=== PATIENT | male | born 1950 | race Caucasian/White ===

== ENCOUNTER 2017-02-15 16:20 | Inpatient (IN) | payer MEDICARE, BC ==
[~2017-02-15] VITALS: Ht 175.3 cm; Wt 71.9 kg
[2017-02-15] MEDS ORDERED: SODIUM CHLORIDE FLUSH 10ML SYR IVF ONE (16:30)
[2017-02-15] MEDS ORDERED: ALBUTEROL/IPRATROPIUM 2.5MG/0.5MG, 3 ML ONE ×2 (16:43→16:56)
[2017-02-15] MEDS: ALBUTEROL/IPRATROPIUM 2.5MG/0.5MG, 3 ML NPPB SCH ×2 (16:48→17:06)
[2017-02-15 17:09] LABS: HEMOGLOBIN 15.2 g/dL (13.7-18.0)
[2017-02-15 17:23] LABS: BLOOD UREA NITROGEN 11 mg/dL (7-18)
[2017-02-15 17:27] LABS: IS PT STATUS REG ER OR PRE ER? YES
[2017-02-15] MEDS ORDERED: ALBU8.5H3 INH (20:08)
[2017-02-15 20:26] VITALS: BP 112/72
[2017-02-15] MEDS ORDERED: DOCUSATE 100 MG CAPSULE PO PRN (20:30)
[2017-02-15] MEDS ORDERED: POLYETHYLENE GLYCOL 17 GM PACKET PO PRN (20:30)
[2017-02-15] MEDS ORDERED: NICOTINE 14MG/24 HR PATCH.TD24 TD SCH (20:30)
[2017-02-15] MEDS ORDERED: SODIUM CHLORIDE 0.9% 1,000ML IVBOLUS ONE (20:30)
[2017-02-15] MEDS ORDERED: BISACODYL 10 MG SUPP PR PRN (20:30)
[2017-02-15] MEDS ORDERED: ACETAMINOPHEN 325 MG TABLET PO PRN (20:30)
[2017-02-15] MEDS ORDERED: TRAZODONE 50MG TABLET PO PRN (20:30)
[2017-02-15] MEDS ORDERED: ONDANSETRON ODT 4 MG PO PRN (20:30)
[2017-02-15] MEDS ORDERED: ENOXAPARIN 40 MG/0.4 ML SQ SCH (20:30)
[2017-02-15] MEDS ORDERED: LABETALOL 5MG/ML, 20ML IV PRN (20:30)
[2017-02-15] MEDS ORDERED: AZITHROMYCIN 500 MG TABLET PO SCH (21:00)
[2017-02-15] MEDS: methylPREDNISolone SOD SUCC 125 MG/2 ML IVPush SCH (21:58)
[2017-02-15] MEDS ORDERED: ALBUTEROL/IPRATROPIUM 2.5MG/0.5MG, 3 ML NPPB PRN (23:00)
[2017-02-15] MEDS ORDERED: PNEUMOCOCCAL 23 VACCINE IM-VACC ONE (23:00)
[2017-02-16 01:22] VITALS: BP 110/61
[2017-02-16] MEDS: methylPREDNISolone SOD SUCC 125 MG/2 ML IVPush SCH ×3 (02:50→15:43)
[2017-02-16 06:15] LABS: ASPARTATE AMINO TRANSFERASE 35 U/L (15-37); BLOOD UREA NITROGEN 16 mg/dL (7-18)
[2017-02-16 07:27] VITALS: BP 117/70
[2017-02-16] MEDS: ALBUTEROL/IPRATROPIUM 2.5MG/0.5MG, 3 ML NPPB SCH ×3 (08:00→15:44)
[2017-02-16 12:56] VITALS: BP 117/72
[2017-02-16] MEDS ORDERED: ALBU8.5H3 INH (15:16)
[2017-02-16] MEDS ORDERED: PRED20TA PO (15:16)
[2017-02-16] MEDS ORDERED: AZIT250T PO (15:16)
== END 2017-02-16 18:00 | disposition home or self-care (01) | DRG 189 ==
LOC: ED 18:39 → EDIP 19:23 → 3NE 20:24
PROVIDERS: ADMIT Internal Medicine; ATTEND Internal Medicine
DX: J96.01 Acute respiratory failure with hypoxia (principal); R65.11 Systemic inflammatory response syndrome (SIRS) of non-infectious origin with acute organ dysfunction; J44.1 Chronic obstructive pulmonary disease with (acute) exacerbation; Z23 Encounter for immunization; Z72.89 Other problems related to lifestyle
CPT/HCPCS: 36415; 71010; 80048; 80053; 82040; 83605; 84439; 84443; 84484; 85025; 85379; 85610; 85730; 90732; 93005; 94640; 96360; 96361; J1650; J7620; J2930; J7030; J7512

== ENCOUNTER 2017-07-13 23:33 | Inpatient (IN) | payer MEDICARE, BC ==
[~2017-07-13] VITALS: Ht 188 cm; Wt 79.4 kg
[~2017-07-13 23:33] MED LIST: ALBU8.5H8 INH; AZIT250T PO; PRED20TA PO
[2017-07-13] MEDS ORDERED: ALBUTEROL SULFATE 2.5MG/0.5ML ONE (23:36)
[2017-07-14] MEDS ORDERED: SODIUM CHLORIDE FLUSH 10ML SYR IVF ONE
[2017-07-14] MEDS ORDERED: MAGNESIUM SULFATE PMX 2GM/50ML 50 ML IVPB ONE
[2017-07-14] MEDS ORDERED: PROPOFOL 100 ML IV PRN
[2017-07-14] MEDS ORDERED: SODIUM CHLORIDE 0.9% 1,000ML IVBOLUS ONE
[2017-07-14] MEDS ORDERED: methylPREDNISolone SOD SUCC 125 MG/2 ML IVP ONE
[2017-07-14] MEDS ORDERED: IPRATROPIUM 0.5 MG/2.5 ML INHA NPPB SCH
[2017-07-14] MEDS ORDERED: ETOMIDATE 20 MG/10 ML IVPush ONE
[2017-07-14] MEDS ORDERED: ONDANSETRON 2MG/ML, 2ML IVP ONE
[2017-07-14] MEDS ORDERED: ALBUTEROL 0.5%, 20ML NPPB SCH
[2017-07-14] MEDS ORDERED: SUCCINYLCHOLINE 20 MG/ML, 10ML IVPush ONE
[2017-07-14 00:02] LABS: HEMATOCRIT 42.7 % (39.2-51.8); HEMOGLOBIN 13.9 g/dL (13.7-18.0); WHITE BLOOD COUNT 15.9 x10^3/uL (3.4-10)
[2017-07-14 00:13] LABS: ABG COLLECTION SITE LEFT RADIAL; COLLATERAL CIRCULATION TESTING NORMAL
[2017-07-14 00:15] LABS: ASPARTATE AMINO TRANSFERASE 19 U/L (15-37); BLOOD UREA NITROGEN 10 mg/dL (7-18)
[2017-07-14 00:19] LABS: IS PT STATUS REG ER OR PRE ER? YES
[2017-07-14] MEDS ORDERED: AZITHROMYCIN 500 MG in SODIUM CHLORIDE 0.9% 250 ML IV ONE (00:30)
[2017-07-14] MEDS ORDERED: methylPREDNISolone SOD SUCC 125 MG/2 ML ONE (00:32)
[2017-07-14] MEDS ORDERED: VECURONIUM 10 MG ONE (01:00)
[2017-07-14] MEDS ORDERED: SUCCINYLCHOLINE 20 MG/ML, 10ML ONE (01:00)
[2017-07-14] MEDS ORDERED: PROPOFOL 10 MG/ML, 100ML IV ONE (01:00)
[2017-07-14] MEDS ORDERED: MIDAZOLAM 1 MG/ML, 5ML ONE (01:00)
[2017-07-14] MEDS ORDERED: VECURONIUM 10 MG IVPush ONE (01:00)
[2017-07-14] MEDS ORDERED: ETOMIDATE 20 MG/10 ML ONE (01:00)
[2017-07-14] MEDS ORDERED: MIDAZOLAM 1 MG/ML, 5ML IVPush ONE (01:00)
[2017-07-14] MEDS: SODIUM CHLORIDE 0.9% 1,000 ML IV SCH ×3 (01:17→20:21)
[2017-07-14] MEDS: methylPREDNISolone SOD SUCC 125 MG/2 ML IVPush SCH ×4 (01:26→19:02)
[2017-07-14] MEDS ORDERED: ACETAMINOPHEN 650 MG/20.3 ML UDC NG PRN (01:30)
[2017-07-14] MEDS ORDERED: ONDANSETRON 2MG/ML, 2ML IVPush PRN (01:30)
[2017-07-14] MEDS ORDERED: LIDOCAINE-MPF 1%, 2ML ENDO PRN (01:30)
[2017-07-14] MEDS ORDERED: BISACODYL 10 MG SUPP PR PRN (01:30)
[2017-07-14] MEDS ORDERED: ONDANSETRON 2MG/ML, 2ML ONE (01:43)
[2017-07-14] MEDS ORDERED: ENOXAPARIN 40 MG/0.4 ML ONE (01:43)
[2017-07-14] MEDS: ENOXAPARIN 40 MG/0.4 ML SQ SCH (01:50)
[2017-07-14] MEDS ORDERED: FENTANYL PF 100 MCG/2ML ONE ×2 (01:53→02:29)
[2017-07-14 02:00] LABS: IS PT STATUS REG ER OR PRE ER? YES
[2017-07-14] MEDS ORDERED: FENTANYL PF 100 MCG/2ML IVPush ONE (02:00)
[2017-07-14] MEDS ORDERED: MIDAZOLAM HCL 25 MG in SODIUM CHLORIDE 0.9% 245 ML IV PRN (02:00)
[2017-07-14] MEDS: ALBUTEROL/IPRATROPIUM 2.5MG/0.5MG, 3 ML INLINE SCH ×6 (02:05→21:55)
[2017-07-14 02:58] VITALS: BP 82/48
[2017-07-14] MEDS: CEFTRIAXONE PMX 1GM/50ML 50 ML IV SCH (03:54)
[2017-07-14 05:38] LABS: ABG COLLECTION SITE RIGHT RADIAL; COLLATERAL CIRCULATION TESTING NORMAL
[2017-07-14] MEDS: FAMOTIDINE 20 MG/2 ML IVPush SCH ×2 (07:24→20:22)
[2017-07-14] MEDS: MORPHINE SULFATE 4 MG/ML, 1ML IVPush PRN ×6 (07:24→23:25)
[2017-07-14 07:50] LABS: IS PT STATUS REG ER OR PRE ER? NO
[2017-07-14] MEDS: PROPOFOL 100 ML IV PRN (08:25)
[2017-07-14] MEDS: ASPIRIN 81 MG TABLET CHEW PO SCH (17:10)
[2017-07-14 17:23] LABS: IS PT STATUS REG ER OR PRE ER? NO
[2017-07-14] MEDS ORDERED: SODIUM CHLORIDE 0.9% 500 ML IV SCH (18:00)
[2017-07-14] MEDS ORDERED: SODIUM CHLORIDE 0.9% 500 ML IV PRN (18:00)
[2017-07-15] MEDS: ALBUTEROL/IPRATROPIUM 2.5MG/0.5MG, 3 ML INLINE SCH ×2 (01:30→06:40)
[2017-07-15] MEDS: ENOXAPARIN 40 MG/0.4 ML SQ SCH (01:36)
[2017-07-15] MEDS: methylPREDNISolone SOD SUCC 125 MG/2 ML IVPush SCH ×4 (01:36→20:14)
[2017-07-15] MEDS: CEFTRIAXONE PMX 1GM/50ML 50 ML IV SCH (01:37)
[2017-07-15] MEDS: PROPOFOL 100 ML IV PRN (02:49)
[2017-07-15] MEDS: MORPHINE SULFATE 4 MG/ML, 1ML IVPush PRN (04:18)
[2017-07-15 04:19] VITALS: BP 111/56
[2017-07-15 04:40] LABS: ABG COLLECTION SITE RIGHT RADIAL; COLLATERAL CIRCULATION TESTING NORMAL
[2017-07-15 05:04] LABS: HEMATOCRIT 37.4 % (39.2-51.8); WHITE BLOOD COUNT 11.6 x10^3/uL (3.4-10)
[2017-07-15 05:24] LABS: BLOOD UREA NITROGEN 15 mg/dL (7-18)
[2017-07-15] MEDS: SODIUM CHLORIDE 0.9% 1,000 ML IV SCH ×2 (08:25→20:14)
[2017-07-15] MEDS: FAMOTIDINE 20 MG/2 ML IVPush SCH ×2 (09:54→20:14)
[2017-07-15] MEDS: ASPIRIN 81 MG TABLET CHEW PO SCH (09:54)
[2017-07-15] MEDS: ALBUTEROL/IPRATROPIUM 2.5MG/0.5MG, 3 ML NPPB SCH ×4 (10:16→22:20)
[2017-07-15] MEDS ORDERED: ALBUTEROL/IPRATROPIUM 2.5MG/0.5MG, 3 ML NPPB PRN (10:30)
[2017-07-16] MEDS: CEFTRIAXONE PMX 1GM/50ML 50 ML IV SCH (01:22)
[2017-07-16] MEDS: methylPREDNISolone SOD SUCC 125 MG/2 ML IVPush SCH ×4 (01:22→20:17)
[2017-07-16] MEDS: ENOXAPARIN 40 MG/0.4 ML SQ SCH (01:22)
[2017-07-16] MEDS: ALBUTEROL/IPRATROPIUM 2.5MG/0.5MG, 3 ML NPPB SCH ×5 (02:59→21:40)
[2017-07-16 04:00] VITALS: BP 117/56
[2017-07-16 04:12] LABS: ABG COLLECTION SITE LEFT BRACHIAL
[2017-07-16 04:13] LABS: HEMATOCRIT 35.6 % (39.2-51.8); HEMOGLOBIN 11.8 g/dL (13.7-18.0); WHITE BLOOD COUNT 9.7 x10^3/uL (3.4-10)
[2017-07-16 04:26] LABS: BLOOD UREA NITROGEN 16 mg/dL (7-18)
[2017-07-16] MEDS: ASPIRIN 81 MG TABLET CHEW PO SCH (09:29)
[2017-07-16 14:34] VITALS: BP 116/57
[2017-07-16 18:30] VITALS: BP 131/55
[2017-07-17] MEDS: CEFTRIAXONE PMX 1GM/50ML 50 ML IV SCH (01:12)
[2017-07-17] MEDS: methylPREDNISolone SOD SUCC 125 MG/2 ML IVPush SCH ×3 (01:15→14:22)
[2017-07-17] MEDS: ENOXAPARIN 40 MG/0.4 ML SQ SCH (01:15)
[2017-07-17 01:20] VITALS: BP 118/66
[2017-07-17 04:57] LABS: BLOOD UREA NITROGEN 20 mg/dL (7-18)
[2017-07-17 05:06] LABS: HEMATOCRIT 35.5 % (39.2-51.8); HEMOGLOBIN 11.8 g/dL (13.7-18.0); WHITE BLOOD COUNT 7.4 x10^3/uL (3.4-10)
[2017-07-17] MEDS: ALBUTEROL/IPRATROPIUM 2.5MG/0.5MG, 3 ML NPPB SCH ×5 (07:42→23:05)
[2017-07-17 08:10] VITALS: BP 133/68
[2017-07-17] MEDS: ASPIRIN 81 MG TABLET CHEW PO SCH (08:11)
[2017-07-17 12:02] VITALS: BP 113/53
[2017-07-17] MEDS ORDERED: ACETAMINOPHEN 650 MG/20.3 ML UDC NG PRN (19:30)
[2017-07-17] MEDS ORDERED: ONDANSETRON 2MG/ML, 2ML IVPush PRN (19:30)
[2017-07-17] MEDS ORDERED: BISACODYL 10 MG SUPP PR PRN (19:30)
[2017-07-17 20:00] VITALS: BP 137/70
[2017-07-18] MEDS: CEFTRIAXONE PMX 1GM/50ML 50 ML IV SCH (01:28)
[2017-07-18] MEDS: ENOXAPARIN 40 MG/0.4 ML SQ SCH (01:29)
[2017-07-18 02:00] VITALS: BP 127/70
[2017-07-18 05:40] LABS: HEMATOCRIT 36.3 % (39.2-51.8); HEMOGLOBIN 12.1 g/dL (13.7-18.0); WHITE BLOOD COUNT 6.3 x10^3/uL (3.4-10)
[2017-07-18] MEDS: ALBUTEROL/IPRATROPIUM 2.5MG/0.5MG, 3 ML NPPB SCH (06:00)
[2017-07-18 06:05] LABS: ASPARTATE AMINO TRANSFERASE 48 U/L (15-37); BLOOD UREA NITROGEN 19 mg/dL (7-18)
[2017-07-18 06:36] VITALS: BP 131/74
[2017-07-18] MEDS ORDERED: BUDE10.2 INH (08:25)
[2017-07-18] MEDS ORDERED: ASPI-515 PO (08:25)
[2017-07-18] MEDS ORDERED: PRED20TA PO (08:25)
[2017-07-18] MEDS ORDERED: TIOT18CA INH (08:25)
[2017-07-18] MEDS: ASPIRIN 81 MG TABLET CHEW PO SCH (08:26)
[2017-07-18] MEDS ORDERED: CEFD300C37 PO (10:36)
== END 2017-07-18 10:46 | disposition home or self-care (01) | DRG 208 ==
LOC: ED 23:51 → EDIP 07-14 00:26 → CCU 07-14 02:33 → 4WST 07-16 11:05 → 4EST 07-17 16:00 → DCLOUNGE 07-18 10:13
PROVIDERS: ADMIT Internal Medicine; ATTEND Internal Medicine
PROC: 0BH17EZ Insertion of Endotracheal Airway into Trachea, Via Natural or Artificial Opening (ICD-10-PCS; principal; 2017-07-13)
PROC: 5A1945Z Respiratory Ventilation, 24-96 Consecutive Hours (ICD-10-PCS; 2017-07-13)
DX: J96.01 Acute respiratory failure with hypoxia (principal); Z99.11 Dependence on respirator [ventilator] status; E87.2 Acidosis; J44.0 Chronic obstructive pulmonary disease with (acute) lower respiratory infection; J44.1 Chronic obstructive pulmonary disease with (acute) exacerbation; D72.829 Elevated white blood cell count, unspecified; J96.02 Acute respiratory failure with hypercapnia; J20.9 Acute bronchitis, unspecified; Z79.2 Long term (current) use of antibiotics; Z79.899 Other long term (current) drug therapy
CPT/HCPCS: 31500; 36415; 36600; 71010; 80048; 80053; 82803; 83605; 83735; 83880; 84478; 84484; 85025; 87040; 87070; 87077; 87081; 87205; 93005; 93308; 93321; 93325; 94002; 94003; 94150; 94640; 96365; 96366; 96368; 96375; J0456; J0696; J1650; J2250; J2405; J2704; J3010; J3490; J7620; J7644; J0330; J2930; J3475; J7030; J7040; J7050; J7512; S0028